=== PATIENT | male | born 1975 | race Caucasian/White ===

== ENCOUNTER 2019-09-14 17:47 | Emergency (ER) | payer SELFPAY ==
--- NOTE | 2019-09-14 17:52 | NUR ---
PT CALLED NO ANSWER. NOT SEEN IN THE LOBBY.
--- NOTE | 2019-09-14 18:22 | NUR ---
CALLED PT, NO ANSWER. PT NOT OUTSIDE ER EITHER
--- NOTE | 2019-09-14 18:29 | NUR ---
CALLED PT FROM LOBBY, NO ANSWER. [facility]BS
== END 2019-09-14 18:29 | disposition left against medical advice (07) ==
LOC: MED 17:47
DX: R51 Headache (principal); Z53.21 Procedure and treatment not carried out due to patient leaving prior to being seen by health care provider